=== PATIENT | female | born 1990 | race African-American/Black ===

== ENCOUNTER 2016-09-23 19:28 | Emergency (ER) | payer MEDICAID, OTHER ==
[~2016-09-23] VITALS: Ht 172.7 cm; Wt 70.0 kg
[2016-09-23 19:30] VITALS: BP 128/75; PULSE 84; RESP 16; TEMP 98.6; O2SAT 100
[2016-09-23] MEDS ORDERED: PENI500T PO (19:54)
--- NOTE | 2016-09-23 19:57 | PD ---
HPI Chief Complaint: ENT Complaint Time Seen by Provider: 19:54 Travel History International Travel<30 days: No Contact w/Intl Traveler<30days: No Traveled to known affect area: No History of Present Illness HPI 26-year-old black female presents emergency Department with a 24-hour history of sore throat. She has had subjective fever, right ear pain, sore throat, and general malaise. She denies any nausea vomiting. No abdominal pain or diarrhea. No dysuria or frequency. PFSH Past Medical History Medical History: Denies Significant Hx Diminished Hearing: No Immunizations Current: No Tetanus Vaccination: < 5 Years ?: Not Past Surgical History Surgical History: No Previous Surgery Social History Alcohol Use: Yes Tobacco Use: Yes Substance Use: No Allergies-Medications (Allergen,Severity, Reaction): Coded Allergies: No Known Allergies (Verified , 08/17/16) Reported Meds & Prescriptions Reported Meds & Active Scripts Active Review of Systems Except as stated in HPI: all other systems reviewed are Neg Physical Exam Narrative GENERAL: Well-developed, well-nourished in no acute distress. Nontoxic appearing. HEAD: Normocephalic, atraumatic. EYES: Pupils equal round and reactive. Extraocular motions intact. No scleral icterus. No injection or drainage. ENT: TMs clear without erythema. The external auditory canals clear. Nose: clear . Posterior pharynx is erythematous and moist. No tonsillar edema or exudate. Uvula midline. Airway patent. NECK: Trachea midline.Supple, nontender, moves head freely. No central bony tenderness or spasm. CARDIOVASCULAR: Regular rate and rhythm without murmurs, gallops, or rubs. RESPIRATORY: Clear to auscultation. Breath sounds equal bilaterally. No wheezes , rales, or rhonchi. GASTROINTESTINAL: Abdomen soft, non-tender, nondistended. No hepato-splenomegaly , or palpable masses. No guarding. EXTREMITIES: No clubbing, cyanosis, or edema. No joint tenderness, effusion, or edema noted. BACK: Nontender without deformity or crepitance. No flank tenderness. Data Data Last Documented VS Vital Signs Date Time Temp Pulse Resp B/P Pulse Ox O2 Delivery O2 Flow Rate FiO2 09/23/16 19:30 98.6 84 16 128/75 100 Orders Amoxicillin (Trimox) (09/23/16 20:00) Ibuprofen (Motrin) (09/23/16 20:00) JESSY Medical Decision Making Medical Screen Exam Complete: Yes Emergency Medical Condition: Yes Medical Record Reviewed: Yes Differential Diagnosis MDM: High Differential diagnoses: Strep throat, viral pharyngitis, mono, peritonsillar abscess, retropharyngeal abscess, Nestor's angina Narrative Course Patient is given Amoxil 500 and Motrin 600 mg by mouth. This acute pharyngitis Diagnosis Primary Impression: Acute pharyngitis Qualified Code: J02.9 - Acute pharyngitis, unspecified etiology Patient Instructions: General Instructions Departure Forms: Tests/Procedures, Work Release Special Instructions: No school or work 09/24/16 Additional Instructions: Rest. Force fluids. Saltwater gargles. Tylenol and Advil. Chloraseptic [place] Cepastat lozenge. Pen VK. Follow-up with a primary care doctor in one week. Return to the ER if any problems. Med/Other Pt SpecificInfo: Prescription(s) given Scripts Penicillin V Potassium 500 Mg [id number] Mg PO Q12HR #20 TAB Prov:Ángel eWst MD 09/23/16 Disposition: 01 DISCHARGE HOME Condition: Stable Del Tomlin September 23, 2016 19:57
[2016-09-23] MEDS ORDERED: AMOXICILLIN (TRIHYDRATE) 500 MG CAP PO ONE (20:00)
[2016-09-23] MEDS ORDERED: IBUPROFEN 600 MG TAB PO ONE (20:00)
== END 2016-09-23 20:25 | disposition home or self-care (01) ==
LOC: NEPK 19:28
DX: J02.9 Acute pharyngitis, unspecified (principal); H92.01 Otalgia, right ear; R53.81 Other malaise; Z72.0 Tobacco use
CPT/HCPCS: 99283

== ENCOUNTER 2017-10-13 01:25 | Emergency (ER) | payer MEDICAID ==
[~2017-10-13 01:25] MED LIST: PENI500T PO
[2017-10-13 01:27] VITALS: BP 127/73; PULSE 86; RESP 18; TEMP 100
== END 2017-10-13 03:50 | disposition left against medical advice (07) ==
LOC: NED 01:25
DX: J02.9 Acute pharyngitis, unspecified (principal); Z53.21 Procedure and treatment not carried out due to patient leaving prior to being seen by health care provider
CPT/HCPCS: 99281